=== PATIENT | female | born 2000 ===

== ENCOUNTER 2018-04-10 03:03 | Emergency (ER) ==
--- NOTE | 2018-04-10 05:24 | ER Document Report ---
ED Medical Screen (RME) - General Chief Complaint: Abdominal Pain Stated Complaint: ABDOMINAL PAIN Time Seen by Provider: 04/10/18 04:58 Notes: Patient was gone from room when I went to evaluate her, patient left without being seen. TRAVEL OUTSIDE OF THE [place] IN LAST 30 DAYS: No Past Medical History - Social History Chew tobacco use (# tins/day): No Frequency of alcohol use: None Drug Abuse: None Renal/ Medical History: Denies: Hx Peritoneal Dialysis Past Surgical History: Reports: Hx Oral Surgery Physical Exam - Vital signs Vitals: Temp Pulse Resp BP Pulse Ox 97.7 F 57 L 16 103/52 L 99 04/10/18 03:03 04/10/18 03:03 04/10/18 03:03 04/10/18 03:03 04/10/18 03:03 Course - Vital Signs Vital signs: Temp Pulse Resp BP Pulse Ox 97.7 F 57 L 16 103/52 L 99 04/10/18 03:03 04/10/18 03:03 04/10/18 03:03 04/10/18 03:03 04/10/18 03:03
== END 2018-04-10 05:54 | disposition home or self-care (01) ==
LOC: ER 03:03
DX: Z53.21 Procedure and treatment not carried out due to patient leaving prior to being seen by health care provider (principal)